=== PATIENT | female | born 1965 ===

== ENCOUNTER 2023-01-05 04:13 | Day surgery (SDC) | payer BC ==
[2023-01-01 18:04] VITALS: BMI 23.1
[2023-01-05] MEDS ORDERED: MIDAZOLAM HCL 2 MG/2 ML SINGLE DOSE VIAL ONE (07:31)
[2023-01-05] MEDS ORDERED: LIDOCAINE HCL/PF 2% SDV 5ML VIAL ONE (07:31)
[2023-01-05] MEDS ORDERED: PROPOFOL 20 ML ONE (07:31)
[2023-01-05] MEDS ORDERED: oxyCODONE HCL 5 MG TABLET PO PRN (07:49)
[2023-01-05] MEDS ORDERED: IBUPROFEN 600 MG TABLET (FP) PO PRN (07:49)
[2023-01-05] MEDS ORDERED: IBUPROFEN 800 MG/8 ML IJ IVPB PRN (07:49)
[2023-01-05] MEDS ORDERED: ONDANSETRON 4 MG/2 ML VIAL IVPUSH PRN (07:49)
[2023-01-05] MEDS ORDERED: ELECTROLYTE-148 SOLN 1,000 ML IV SCH (08:00)
[2023-01-05] MEDS ORDERED: ONDANSETRON 4 MG/2 ML VIAL ONE (08:12)
[2023-01-05] MEDS ORDERED: DEXAMETHASONE SOD PHOSPHATE 4 MG/1 ML VIAL ONE (08:12)
[2023-01-05] MEDS ORDERED: KETOROLAC TROMETHAMINE 30 MG/1 ML VIAL ONE (08:18)
[2023-01-05] MEDS ORDERED: ACETAMINOPHEN 1000 MG/100 ML BAG IVPB PRN (08:48)
[2023-01-05] MEDS ORDERED: LACTATED RINGERS SOLUTION 1,000 ML IV SCH (09:00)
[2023-01-05] MEDS ORDERED: ACETAMINOPHEN INJECTION 100 ML IVPB ONE (09:35)
[2023-01-05 13:18] VITALS: BP 122/66; PULSE 75; RESP 18; TEMP 97.8
== END 2023-01-05 12:20 | disposition home or self-care (01) ==
LOC: JASU-SURG 04:13
PROVIDERS: ATTEND Obstetrics & Gynecology
PROC: 0UDB8ZX Extraction of Endometrium, Via Natural or Artificial Opening Endoscopic, Diagnostic (ICD-10-PCS; principal; 2023-01-05 07:30)
DX: N95.0 Postmenopausal bleeding (principal); N95.2 Postmenopausal atrophic vaginitis
CPT/HCPCS: 88305-TC; 94760

== ENCOUNTER 2025-02-06 06:29 | Day surgery (SDC) | payer BC ==
[2025-02-06 07:54] VITALS: BMI 24.2
[2025-02-06] MEDS ORDERED: MIDAZOLAM HCL 2 MG/2 ML SINGLE DOSE VIAL ONE (08:11)
[2025-02-06] MEDS ORDERED: DEXAMETHASONE SOD PHOSPHATE 4 MG/1 ML VIAL ONE (08:11)
[2025-02-06] MEDS ORDERED: PROPOFOL 20 ML ONE (08:11)
[2025-02-06] MEDS ORDERED: KETOROLAC TROMETHAMINE 30 MG/1 ML VIAL ONE (08:11)
[2025-02-06] MEDS ORDERED: ONDANSETRON 4 MG/2 ML VIAL ONE (08:11)
[2025-02-06] MEDS ORDERED: LIDOCAINE HCL/PF 2% SDV 5ML VIAL ONE (08:11)
[2025-02-06] MEDS ORDERED: ONDANSETRON 4 MG/2 ML VIAL IVPUSH PRN ×2 (08:33→08:57)
[2025-02-06] MEDS ORDERED: LACTATED RINGERS SOLUTION 1,000 ML IV SCH (08:45)
[2025-02-06] MEDS ORDERED: IBUPROFEN 800 MG/8 ML IJ IVPB PRN (08:57)
[2025-02-06] MEDS ORDERED: IBUPROFEN 600 MG TABLET (FP) PO PRN (08:57)
[2025-02-06] MEDS ORDERED: ELECTROLYTE-148 SOLN 1,000 ML IV SCH (09:00)
[2025-02-06 13:21] VITALS: RESP 20; TEMP 97.3
[2025-02-06 13:23] VITALS: BP 119/75; PULSE 60
== END 2025-02-06 13:33 | disposition home or self-care (01) ==
LOC: JASU-SURG 06:29
PROVIDERS: ATTEND Obstetrics & Gynecology
PROC: 0UB98ZZ Excision of Uterus, Via Natural or Artificial Opening Endoscopic (ICD-10-PCS; principal; 2025-02-06 08:30)
DX: N95.0 Postmenopausal bleeding (principal); D25.0 Submucous leiomyoma of uterus
CPT/HCPCS: 88305-TC; 93005; 93010; 94760